=== PATIENT | male | born 1985 | race Caucasian/White ===

== ENCOUNTER 2022-06-09 22:11 | Emergency (ER) | payer MEDICAID, SELFPAY ==
--- NOTE | ~2022-06-09 | CT_ITS ---
EXAMINATION: NONCONTRAST HEAD CT NONCONTRAST CERVICAL SPINE CT INDICATION INFORMATION: Fall, head injury, loss of consciousness COMPARISON: None TECHNIQUE: Separate noncontrast CT examinations of the head and cervical spine were performed. Coronal head CT images and coronal and sagittal cervical spine images were created at the technologist workstation. DLP: 1245 mGy-cm DOSE LOWERING TECHNIQUES: This CT examination was performed using dose optimization techniques as appropriate, variously including the following: - Automated exposure control - Adjustment of mA and/or kV according to patient size (this includes techniques or standardized protocols for targeted exams were dose is matched to indication/reason for exam; i.e. extremities or head) - Use of iterative reconstruction technique FINDINGS: Head: There is no evidence of acute intracranial hemorrhage or territorial infarction. No abnormal mass-effect or midline shift is seen. Salazar to white matter differentiation is well preserved. No extra-axial fluid collections are identified. The ventricles are normal in size. There is no abnormal attenuation within the brain parenchyma. No acute fracture seen. There is right parieto-occipital scalp soft tissue swelling. The mastoid air cells and visualized portions of the paranasal sinuses are well-aerated. Cervical spine: There is anatomic alignment of the vertebral bodies and posterior elements. Vertebral body heights are maintained. Intervertebral disc spaces are preserved. No evidence of acute fracture. No prevertebral soft tissue swelling. Visualized portions of the lung apices are unremarkable. The thyroid gland is unremarkable. CT/CT head/brain wo IV con IMPRESSION: HEAD: No acute intracranial findings. Right parieto-occipital scalp soft tissue swelling. CERVICAL SPINE: No acute findings identified.
--- NOTE | ~2022-06-09 | CT_ITS ---
EXAMINATION: NONCONTRAST HEAD CT NONCONTRAST CERVICAL SPINE CT INDICATION INFORMATION: Fall, head injury, loss of consciousness COMPARISON: None TECHNIQUE: Separate noncontrast CT examinations of the head and cervical spine were performed. Coronal head CT images and coronal and sagittal cervical spine images were created at the technologist workstation. DLP: 1245 mGy-cm DOSE LOWERING TECHNIQUES: This CT examination was performed using dose optimization techniques as appropriate, variously including the following: - Automated exposure control - Adjustment of mA and/or kV according to patient size (this includes techniques or standardized protocols for targeted exams were dose is matched to indication/reason for exam; i.e. extremities or head) - Use of iterative reconstruction technique FINDINGS: Head: There is no evidence of acute intracranial hemorrhage or territorial infarction. No abnormal mass-effect or midline shift is seen. Salazar to white matter differentiation is well preserved. No extra-axial fluid collections are identified. The ventricles are normal in size. There is no abnormal attenuation within the brain parenchyma. No acute fracture seen. There is right parieto-occipital scalp soft tissue swelling. The mastoid air cells and visualized portions of the paranasal sinuses are well-aerated. Cervical spine: There is anatomic alignment of the vertebral bodies and posterior elements. Vertebral body heights are maintained. Intervertebral disc spaces are preserved. No evidence of acute fracture. No prevertebral soft tissue swelling. Visualized portions of the lung apices are unremarkable. The thyroid gland is unremarkable. CT/CT cervical spine wo IV con IMPRESSION: HEAD: No acute intracranial findings. Right parieto-occipital scalp soft tissue swelling. CERVICAL SPINE: No acute findings identified.
--- NOTE | 2022-06-09 22:14 | ECG_ITS ---
Test Reason : syncope Blood Pressure : / mmHG Vent. Rate : 042 BPM Atrial Rate : 042 BPM P-R Int : 128 ms QRS Dur : 096 ms QT Int : 452 ms P-R-T Axes : 047 078 062 degrees QTc Int : 377 ms Marked sinus bradycardia Minimal voltage criteria for LVH, may be normal variant ( Sokolow-Bower ) Abnormal ECG No previous ECGs available Referred By: Generic ED Physician Electronically Signed By:AMANDA HARP
[2022-06-09 22:15] VITALS: BMI 28.3
--- NOTE | 2022-06-09 22:22 | ED_ITS ---
HPI - General Adult General Chief complaint: Syncope Stated complaint: Fainted, Fell Time Seen by Provider: 06/09/22 22:19 Source: patient Mode of arrival: ambulatory Limitations: no limitations History of Present Illness HPI narrative: Patient was in the emergency room accompanying his who is a primary patient. Blood was being drawn, patient passed out, hit his head as he landed on the ground. Patient states that he usually gets dizzy and passes out whenever he goes to hospitals. This time, his was a primary patient, and when he saw the blood, patient started feeling lightheaded. Patient stated that he also had the urge to go to the bathroom to urinate, patient try walking towards the bathroom and that is when he passed out. The fall was witnessed by the staff, patient did not lose consciousness. But he did hit his head pretty hard on the ground. All vitals were checked, it was noted that patient's heart rate is in the low 40s. Patient states that he does a lot of exercise, every da y in the morning goes to the gym and also his work is physically demanding. Related Data Allergies Allergy/AdvReac Type Severity Reaction Status Date / Time No Known Allergies Allergy Verified 06/09/22 22:20 Review of Systems Review of Systems: Constitutional : No Weight loss, No Fever, No Chills, No Night Sweats, No Fatigue, No Malaise ENT/Mouth : No Hearing loss, No Ear Pain, No Nasal Congestion, No Sinus Pain, No Hoarseness, No sore throat, No Rhinorrhea, No Swallowing Difficulty Eyes: No Eye Pain, No Swelling, No Redness, No Foreign Body, No Discharge, No Vision Changes Cardiovascular : No Chest Pain, No SOB, No Dyspnea on Exertion, No Orthopnea, No Edema, No Palpitations Respiratory : No Cough, No Sputum, No Wheezing, No Smoke Exposure, No Dyspnea Gastrointestinal : No Nausea, No Vomiting, No Diarrhea, No Constipation, No abdominal Pain, No Hematochezia, No Melena Genitourinary : no irregular bleeding, No Dysuria, No Urinary Frequency, No Hematuria, No Urinary Incontinence, No Urgency, No Flank Pain, No Urinary Flow Changes, No Hesitancy Musculoskeletal : No joint pain, No Myalgias, No Joint Swelling Skin : Laceration scalp Neuro : No Weakness, No Numbness, No Paresthesias, near syncopal episode secondary to sing blood Psych : No Anxiety/Panic, No Depression, No SI/HI/AH/VH, No Social Issues, Heme/Lymph: No Bruising, No Bleeding,No Lymphadenopathy Endocrine : No Polyuria, No Polydipsia, No Temperature Intolerance [facility] Social History Social History Alcohol intake: current Alcohol intake frequency: holidays/special occasions only Alcohol type: beer Smoked in Last 30 Days: No Use of substances other than those prescribed or required for medical reasons: Yes Substance Use Type: Marijuana Substance Use Frequency: Daily Last Used Substance: Hours (ago) Any prior treatment program specific to substance use: No Advance Directives: No Advance Directives Information Provided: No Physical Exam ED Vital Signs: Vital Signs - 24 hr 06/09/22 22:23 06/09/22 22:25 Temperature 98.1 F Pulse Rate 43 L Respiratory Rate 14 Blood Pressure 106/46 L Pulse Oximetry 98 99 Oxygen Delivery Method Room Air BiPAP Room Air BMI result Body Mass Index 28.3 Course Course Course Narrative: -patient covered quickly when patient was placed in Trendelenburg. Patient states that he is no longer dizzy. Patient states that passing out when seeing blood is very frequent for him. -patient is awake, alert and oriented x4. Patient states that he is agreeable to get a head/cervical spine CT, but patient states that he refuses blood work or IV placement, given his severe fear of needles and blood -EKG shows marked sinus bradycardia, heart rate 42, no ST segment depression or elevation, no T-wave inversion, QTC 377, no previous EKGs for comparison Medical Decision Making Medical Decision Making MDM Narrative: -likely vasovagal syncope from seeing blood. Patient feeling well. Blood pressure normal, heart rate in the 60s. Patient ready for discharge. -patient has family history of heart attacks. Patient's father last year of a heart attack. Patient absolutely refuses to get lab work done. -head CT and cervical spine CT did not show any acute abnormalities other than occipital scalp swelling. Patient does have a small laceration approximately 0.5 cm. Patient respectfully declined sutures or sandro. Patient has an intense fear of needles or sandro. Patient states that he will allow his scalp to heal via secondary intention -patient states that he feels completely back to baseline. Differential Diagnosis Differential Diagnoses: The differential diagnosis associated with the presentation includes (Vasovagal syncope, near syncope, orthostatic hypotension, ACS) Lab Data MDM Lab Attestation statement: I reviewed the patient's lab results. Labs: Lab Results 06/09/22 Range/Units 22:21 POC Glucose 85 (60-115) mg/dL Independent Interpretation I performed an independent interpretation of an: CT Scan (My interpretation of head CT: No acute bleed) Radiology Impression Discussion of test interpretation with radiology: I have reviewed the radiol ogist's reading. Radiologist Impression: FINDINGS: Head: There is no evidence of acute intracranial hemorrhage or territorial infarction. No abnormal mass-effect or midline shift is seen. Salazar to white matter differentiation is well preserved. No extra-axial fluid collections are identified. The ventricles are normal in size. There is no abnormal attenuation within the brain parenchyma. No acute fracture seen. There is right parieto-occipital scalp soft tissue swelling. The mastoid air cells and visualized portions of the paranasal sinuses are well-aerated. Cervical spine: There is anatomic alignment of the vertebral bodies and posterior elements. Vertebral body heights are maintained. Intervertebral disc spaces are preserved. No evidence of acute fracture. No prevertebral soft tissue swelling. Visualized portions of the lung apices are unremarkable. The thyroid gland is unremarkable. CT/CT head/brain wo IV con IMPRESSION: HEAD: No acute intracranial findings. Right parieto-occipital scalp soft tissue swelling. ? CERVICAL SPINE: No acute findings identified. ? Discharge Plan Discharge Clinical Impression: Vasovagal syncope Patient Disposition: Home, Self-Care Instructions: Syncope (ED) Additional Instructions: Please follow-up with your primary care physician tomorrow. If you have any worsening or new symptoms, please return to the emergency room or call 911
[2022-06-09 22:23] VITALS: BP 106/46; PULSE 43; RESP 14; TEMP 36.7; O2SAT 98
[2022-06-09 22:24] VITALS: PULSE 41
[2022-06-09 22:25] VITALS: O2SAT 99
[2022-06-09 22:25] LABS: Glucose, Whole Blood 85 mg/dL (60-115)
--- NOTE | 2022-06-09 22:58 | PC.NURSE ---
Patient sectioned 12 by Gavi, ED provider for self destructing behavior d/t ETOH abuse. Patient denies SI/HI. Patient is alert to self and place only. Patient reports mild nausea, no vomiting, Patient ambulated by management technician to the restroom. Gait is noted to be slow and unsteady. Patient changed over in the pod megan and pants in presence of management technician and security. Patient belongings to be placed in the pod locker.
--- NOTE | 2022-06-09 23:51 | PC.NURSE ---
Patient reused blood to be drawn. Patient reports he does not want to passed out again. Dr. Garcia is aware.
--- NOTE | 2022-06-09 23:56 | MHC.EDTECH ---
pt refused blood draw, RN aware. previously refused as well.
== END 2022-06-10 00:38 | disposition home or self-care (01) ==
PROVIDERS: Emergency Provider Emergency Medicine
DX: R55 Syncope and collapse (principal); S01.01XA Laceration without foreign body of scalp, initial encounter; W17.89XA Other fall from one level to another, initial encounter; F12.90 Cannabis use, unspecified, uncomplicated; Y93.89 Activity, other specified; Y92.238 Other place in hospital as the place of occurrence of the external cause; Y99.9 Unspecified external cause status
CPT/HCPCS: 70450; 72125; 82947; 93005; 99284; 99285

== ENCOUNTER 2023-03-14 09:23 | Emergency (ER) | payer OTHER, MEDICAID, SELFPAY ==
[2023-03-14 09:28] VITALS: BP 144/100; PULSE 61; O2SAT 99
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
[2023-03-14 09:40] VITALS: BP 138/85; PULSE 54; RESP 16; TEMP 36.6; O2SAT 99; BMI 26.6
[2023-03-14] MEDS: Cyclobenzaprine HCl 5 MG TABLET PO (09:55)
== END 2023-03-14 09:59 | disposition home or self-care (01) ==
PROVIDERS: Emergency Provider Emergency Medicine
DX: S39.012A Strain of muscle, fascia and tendon of lower back, initial encounter (principal); V43.52XA Car driver injured in collision with other type car in traffic accident, initial encounter; Y93.9 Activity, unspecified; Y92.410 Unspecified street and highway as the place of occurrence of the external cause; Y99.9 Unspecified external cause status
CPT/HCPCS: 99283

== ENCOUNTER 2025-02-18 04:47 | Emergency (ER) | payer OTHER, SELFPAY ==
--- NOTE | ~2025-02-18 | CT_ITS ---
EXAMINATION: CT ABDOMEN PELVIS WITHOUT IV CONTRAST HISTORY: kidney stone COMPARISON: There are no prior studies available for comparison. TECHNIQUE: CT scan of the abdomen and pelvis was performed without contrast using standard departmental protocol. Coronal and sagittal reformatted images were generated and reviewed. This CT exam was performed with one or more of the following dose reduction techniques: automated exposure control, adjustment of the mA and/or kV according to patient size, use of iterative reconstruction technique. DLP: 6 5 mGy-cm FINDINGS: LOWER CHEST: The visualized lung bases are clear. There is no pleural effusion. CARDIOVASCULATURE: The heart is normal in size. There is no pericardial effusion. LIVER: The liver is normal in size and contour. Benign appearing calcification in the dome of the liver segment 7. The liver otherwise has an unremarkable unenhanced appearance. GALLBLADDER / BILE DUCTS: The gallbladder is unremarkable. There is no intra or extrahepatic biliary ductal dilatation. SPLEEN: The spleen is normal in size and has an unremarkable unenhanced appearance. PANCREAS: The pancreas has an unremarkable unenhanced appearance. ADRENAL GLANDS: Unremarkable. KIDNEYS/RETROPERITONEUM: Bilateral renal stones. Mild left hydronephrosis and ureteral dilatation from a 3 mm left distal ureteral stone. LYMPH NODES: No retroperitoneal lymphadenopathy is identified in the abdomen or pelvis. VASCULATURE: The abdominal aorta is normal in caliber. MESENTERY/PERITONEUM: No free fluid. No masses. There is no free intraperitoneal gas. STOMACH: The stomach is unremarkable. SMALL BOWEL: The small bowel is normal in caliber. COLON: The colon is unremarkable. APPENDIX: Normal. URINARY BLADDER/PELVIC ORGANS: The urinary bladder is empty. The prostate gland does not appear enlarged. BONES / SOFT TISSUES: No suspicious bony or soft tissue abnormalities. CT/CT abdomen pelvis wo IV con IMPRESSION: Bilateral renal stones. Mild left hydronephrosis and ureteral dilatation from a 3 mm left distal ureteral stone. Electronically signed by: Jennifer Magaña MD 02/18/2025 08:11 AM EDT
[2025-02-18 04:53] VITALS: BP 127/70; PULSE 54; RESP 16; TEMP 36.6; O2SAT 98; BMI 10.3
[2025-02-18 05:07] LABS: MANUAL DIFF FLAG NO
[2025-02-18 05:12] LABS: Hematocrit 40.2 % (42.0-52.0); Hemoglobin 13.8 g/dl (14.0-18.0); Imm Gran Abs Auto 0.05 X10*3/uL (0.00-0.03); Imm Gran Pct Auto 0.3 % (0.0-0.4); Lymphocytes Absolute Auto 1.3 X10*3/uL (1.2-4.9); Mean Corpuscular HGB Conc 34.3 g/dl (31.0-36.0); Mean Corpuscular Hemoglobin 29.9 pg (27.0-33.0); Mean Corpuscular Volume 87.2 fL (80.0-98.0); NRBC Abs Auto 0.000 X10*3/uL (0.0-0.012); NRBC Pct Auto 0.0 /100WBC (0.0-0.2); Platelet Count 260 X10*3/uL (160-400); Red Blood Count 4.61 X10*6/uL (4.60-5.80); White Blood Count 15.0 X10*3/uL (4.8-10.8)
[2025-02-18 05:43] LABS: Alanine Aminotransferase 27 U/L (0-40); Albumin Level 4.7 g/dL (3.5-5.0); Alkaline Phosphatase 85 U/L (39-117); Anion Gap 14 (12-20); Aspartate Amino Transferase 28 U/L (5-37); Blood Urea Nitrogen 26 mg/dL (9-16); Calcium 9.5 mg/dL (8.4-10.2); Carbon Dioxide 27 mmol/L (22-29); Chloride 104 mmol/L (96-108); Creatinine Clr Calc Pharmacy 26.8; Estimated Glomerular Filt Rate 45; Lipase 15 U/L (8-78); Potassium 4.0 mmol/L (3.3-5.1); Sodium 141 mmol/L (135-145); Total Protein 7.6 g/dL (6.5-8.0)
[2025-02-18 06:33] LABS: Appearance Urine Clear; Glucose Urine UA Negative (Negative); PH 7.5 (5.0-9.0); Specific Gravity - Urine >= 1.030 (1.005-1.025); UMIC TRIGGER UACC YES
--- NOTE | 2025-02-18 06:36 | ED.ABDPAIN ---
HPI - Abdominal Pain General Chief Complaint: Abdominal Pain Stated Complaint: LEFT ABD PAIN + BACK PAIN Time Seen by Provider: 02/18/25 06:05 Source: patient, family and pathology secretary Mode of arrival: ambulatory Limitations: language barrier History of Present Illness ED Provider: HPI narrative: 39-year-old male with a history of kidney stones, presenting with left flank pain left lower quadrant abdominal pain, started him midnight, he feels like he is having spasms, he has had spasms of his back as well, patient specifically is requesting pain medication without any IV or intramuscular injection as he does not like needles. States he was able to void today without any obvious hematuria, non had a episodes of nausea and vomiting x4 in the morning, no fevers or chills reported. No testicular pain. Related Data Previous Rx's ?Medication ?Instructions ?Recorded cyclobenzaprine 5 mg tablet 5 mg PO TID PRN muscle spasm 7 03/14/23 days #21 tabs ondansetron 4 mg disintegrating 4 mg PO Q8H PRN nausea and 02/18/25 tablet vomiting #4 tabs oxycodone 5 mg tablet 5 mg PO Q6H PRN pain #10 tabs 02/18/25 tamsulosin 0.4 mg capsule (Flomax) 0.4 mg PO BEDTIME 7 days #7 caps 02/18/25 Allergies Allergy/AdvReac Type Severity Reaction Status Date / Time No Known Allergies Allergy Verified 02/18/25 04:54 Review of Systems Constitutional: Reports as per [facility] Social History Social History Alcohol intake: never Smoked in Last 30 Days: No Use of substances other than those prescribed or required for medical reasons: Yes Substance Use Type: Marijuana Substance Use Frequency: Daily Last Used Substance: Hours (ago) Any prior treatment program specific to substance use: No Advance Directives: No Advance Directives Information Provided: Yes Do you have a plan to hurt others: No Plan Physical Exam ED Vital Signs: Vital Signs - 24 hr 02/18/25 04:53 02/18/25 07:56 Temperature 97.8 F 98.3 F Pulse Rate 54 53 Respiratory Rate 16 16 Blood Pressure 127/70 137/64 Pulse Oximetry 98 95 Oxygen Delivery Method Room Air Room Air BMI result Body Mass Index 10.3 Const Other: General: ?Pacing in the room ? ?CV: RRR, no obvious murmurs appreciated ? ?Resp: ?No wheezing rales rhonchi no stridor moving air well ? Abd: ?Bowel sounds are present, no tenderness no rebound no rigidity ? ?MSK: FROM, strength 5/5 all extremities, no CVA tenderness, paraspinal tenderness left lower lumbar area without midline tenderness step-offs or rashes ? Skin: Warm, dry, intact, ? ?Neuro: ?Alert and oriented x3, moving upper and lower extremities symmetrically, no obvious facial asymmetry noted, cranial nerves 2-12 intact Medical Decision Making Medical Decision Making [facility] Narrative: 6:59 AM 02/18/2025 (Dr. Mitchell Avitia): Patient is presenting with a either musculoskeletal spasm or renal colic, he is uncomfortable pacing in the room, requested pain initiation without any IV medications or injections so we will stick to oral meds, no risk factors for diskitis osteomyelitis, no neurologic findings to suspect spinal epidural abscess or cauda equina. We will medicate re-evaluate after imaging. Otherwise abdominal exam is benign I do not suspect appendicitis or diverticulitis, has had no testicular pain to suspect testicular torsion. 8:22 AM 02/18/2025 (Dr. Mitchell Avitia): Patient re-evaluated, slightly nauseous, pain is under better control, his 3 mm distal ureteral stone, discussed with the patient we will anticipate discharge Differential Diagnosis Differential Diagnoses: The differential diagnosis associated with the presentation includes (Musculoskeletal pain, renal colic, diskitis osteomyelitis, cauda equina, spinal epidural abscess) Admission/Observation Consideration of admission/observation: Escalation of care including admission/observation considered Lab Data [facility] Lab Attestation statement: I reviewed the patient's lab results. 02/18/25 04:59 02/18/25 04:59 Labs: Lab Results 02/18/25 02/18/25 Range/Units 04:59 06:27 WBC 15.0 H (4.8-10.8) X10*3/uL RBC 4.61 (4.60-5.80) X10*6/uL Hgb 13.8 L (14.0-18.0) g/dl Hct 40.2 L (42.0-52.0) % MCV 87.2 (80.0-98.0) fL MCH 29.9 (27.0-33.0) pg MCHC 34.3 (31.0-36.0) g/dl RDW 14.0 (11.0-16.0) % Plt Count 260 (160-400) X10*3/uL MPV 9.8 (9.4-12.4) fL Immature Gran % (Auto) 0.3 (0.0-0.4) % Neut % (Auto) 87.3 H (45-73) % Lymph % (Auto) 8.5 L (20-40) % [place] % (Auto) 3.6 (2-11) % Eos % (Auto) 0.1 (0-4) % Baso % (Auto) 0.2 (0-2) % Lymph # (Auto) 1.3 (1.2-4.9) X10*3/uL [place] # (Auto) 0.5 (0.1-1.2) X10*3/uL Eos # (Auto) 0.0 (0.0-0.4) X10*3/uL Baso # (Auto) 0.0 (0.0-0.2) X10*3/uL Abs Immat Gran (auto) 0.05 H (0.00-0.03) X10*3/uL Absolute Neuts (auto) 13.1 H (2.0-8.3) x10*3/uL Absolute Nucleated RBC 0.000 (0.0-0.012) X10*3/uL Nucleated RBC % (auto) 0.0 (0.0-0.2) /100WBC Sodium 141 (135-145) mmol/L Potassium 4.0 (3.3-5.1) mmol/L Chloride 104 (96-108) mmol/L Carbon Dioxide 27 (22-29) mmol/L Anion Gap 14 (12-20) BUN 26 H (9-16) mg/dL Creatinine 1.72 H (0.5-1.4) mg/dL Estim Creat Clear Calc 26.8 Estimated GFR 45 Random Glucose 130 H (60-115) mg/dL Calcium 9.5 (8.4-10.2) mg/dL Total Bilirubin 0.6 (0.0-1.0) mg/dL AST 28 (5-37) U/L ALT 27 (0-40) U/L Alkaline Phosphatase 85 (39-117) U/L Total Protein 7.6 (6.5-8.0) g/dL Albumin 4.7 (3.5-5.0) g/dL Lipase 15 (8-78) U/L Urine Color Yellow Urine Appearance Clear Urine pH 7.5 (5.0-9.0) Ur Specific [place] >= 1.030 H (1.005-1.025) Urine Protein Trace (Neg-Trace) mg/dL Urine Glucose (UA) Negative (Negative) mg/dL Urine Ketones 40 (Negative) mg/dL Urine Blood Negative (Negative) Urine Nitrite Negative (Negative) Ur Leukocyte Esterase Trace H (Negative) Urine RBC 0-2 (0-2) /HPF Urine WBC 0-5 (0-5) /HPF Ur Squamous Epith Cells 0-2 (0-2) /HPF Urine Bacteria None Seen (None Seen) Hyaline Casts 0-2 (0-2) /LPF Radiology Impression Discussion of test interpretation with radiology: I have reviewed the radiologist's reading. ( CT/CT abdomen pelvis wo IV con IMPRESSION: Bilateral renal stones. Mild left hydronephrosis and ureteral dilatation from a 3 mm left distal ureteral stone.) Medications Administered Discontinued Medications Generic Name Dose Route Start Last Admin Trade Name Bcq PRN Reason Stop Dose Admin Acetaminophen 975 mg 02/18/25 06:36 02/18/25 07:13 Acetaminophen 325 Mg Tablet PO 02/18/25 06:37 975 mg ONCE ONE Administration Diazepam 2 mg 02/18/25 06:36 02/18/25 07:13 Diazepam 2 Mg Tablet PO 02/18/25 06:37 2 mg ONCE ONE Administration Lidocaine 1 patch 02/18/25 06:36 02/18/25 07:13 Lidocaine 4 % Patch Adh..Patch TRANSDERMA 02/18/25 06:37 1 patch ONCE ONE Administration Protocol Oxycodone HCl 5 mg 02/18/25 06:36 02/18/25 07:13 Oxycodone Hcl Immed Release 5 Mg Tablet PO 02/18/25 06:37 5 mg ONCE ONE Administration Discharge Plan Discharge Clinical Impression: Renal colic on left side Patient Disposition: Home, Self-Care Instructions: Renal Colic (ED) Additional Instructions: Please use ibuprofen 400 mg every 6 hours around the clock, take it with food, acetaminophen 975 mg every 6 hours for additional pain control, oxycodone 5 mg every 4-6 hours only if your pain is not under control, Flomax before bedtime to help pass the stone, ondansetron 4 mg every 6-8 hours needed for nausea and vomiting Inability to tolerate oral liquids, inability to urinate, spiking fevers, chills come back to the ER, otherwise follow up with the PCP or urologist Prescriptions: New tamsulosin [Flomax] 0.4 mg capsule 0.4 mg PO BEDTIME 7 Days Qty: 7 0RF ondansetron 4 mg tablet,disintegrating 4 mg PO Q8H PRN (Reason: nausea and vomiting) Qty: 4 0RF oxycodone 5 mg tablet 5 mg PO Q6H PRN (Reason: pain) Qty: 10 0RF Rx Instructions: Partial Fill upon patient request. No Action cyclobenzaprine 5 mg tablet 5 mg PO TID PRN (Reason: muscle spasm) 7 Days Qty: 21 0RF Stand Alone Forms: Work/School Release Print Language: [place]
[2025-02-18] MEDS: oxyCODONE HCl Immed Release 5 MG TABLET PO (07:13)
[2025-02-18] MEDS: Lidocaine 4 % Patch ADH..PATCH 1 PATCH TRANSDERMA (07:13)
[2025-02-18 07:56] VITALS: BP 137/64; PULSE 53; RESP 16; TEMP 36.8; O2SAT 95
[2025-02-18 08:37] VITALS: BP 137/64; PULSE 53; RESP 16; TEMP 36.8; O2SAT 95
[2025-02-18] MEDS: oxyCODONE HCl ER 10 MG TAB.ER.12H PO (08:46)
== END 2025-02-18 08:58 | disposition home or self-care (01) ==
PROVIDERS: Emergency Provider Emergency Medicine
DX: N23 Unspecified renal colic (principal); R11.2 Nausea with vomiting, unspecified
CPT/HCPCS: 36415; 74176; 80053; 81001; 83690; 85025; 99284

== ENCOUNTER → 2025-02-18 06:36 | Outpatient (BNV) | payer OTHER, SELFPAY | PROVIDERS: Emergency Provider Emergency Medicine; Visit Provider Radiology Diagnostic Radiology | DX: N20.0 Calculus of kidney (principal); N20.1 Calculus of ureter | CPT/HCPCS: 74176 ==

== ENCOUNTER 2025-02-22 08:50 | Emergency (ER) | payer OTHER, SELFPAY ==
[2025-02-22 08:56] VITALS: BP 142/81; PULSE 81; RESP 16; TEMP 36.6; O2SAT 99; BMI 24.4
[2025-02-22 09:13] VITALS: BP 142/81; PULSE 81; RESP 16; TEMP 36.6; O2SAT 99
[2025-02-22 09:21] VITALS: BP 125/88; PULSE 87; RESP 19; TEMP 36.8; O2SAT 97
--- NOTE | 2025-02-22 09:24 | PC.NURSE ---
39 M presents to ED with c/o pain this morning at 2am, thinks he may have passed a kidney stone. Pt deniess any pain/discomfort at this time, sts has been having abdominal pain/discomfort since being seen on , just ran out of meds and is asking for a refill. Pt is taking oxycode, flomax, and zofran. A+Ox4, calm, cooperative. Pt denies CP or SOB. Pt is ambulatory.
--- NOTE | 2025-02-22 09:32 | ED.MALEGU ---
HPI - Male Genitourinary General Chief complaint: Urogenital-Male Stated complaint: kidney stones Time Seen by Provider: 02/22/25 09:25 Source: patient and undergraduate intern Mode of arrival: ambulatory Limitations: language barrier History of Present Illness ED Provider: KERON MEYER PA-C HPI Narrative: 39-year-old Algerian-speaking male presents to the ED today requesting a refill of his medication. Patient was evaluated at our facility on 02/18/2025 for left flank pain. Diagnosed with a 3 mm ureteral stone and discharged home with Flomax, Zofran and oxycodone. Patient reports waking up around 0200 this morning with continued pain, became diaphoretic and voided. He is unsure if he passed the stone at that time. Admits to taking his last dose of Oxycodone at 0600 this morning. He has no complaints at present. Denies any pain. His main concern is that he ran out of his oxycodone and is unsure how he is going to control his pain at home if it returns. He has not yet called to schedule a follow up appointment with urology. Denies fever, chills, N/V, abdominal or flank pain, dysuria, hematuria. Endorses normal PO intake. Related Data Previous Rx's ?Medication ?Instructions ?Recorded cyclobenzaprine 5 mg tablet 5 mg PO TID PRN muscle spasm 7 03/14/23 days #21 tabs ondansetron 4 mg disintegrating 4 mg PO Q8H PRN nausea and 02/18/25 tablet vomiting #4 tabs oxycodone 5 mg tablet 5 mg PO Q6H PRN pain #10 tabs 02/18/25 tamsulosin 0.4 mg capsule (Flomax) 0.4 mg PO BEDTIME 7 days #7 caps 02/18/25 ondansetron 4 mg disintegrating 4 mg PO Q8H PRN nausea and 02/22/25 tablet vomiting #10 tabs oxycodone 5 mg tablet 5 mg PO Q8H PRN pain (scale score 02/22/25 7-10) 3 days #9 tabs Allergies Allergy/AdvReac Type Severity Reaction Status Date / Time No Known Allergies Allergy Verified 02/22/25 09:00 Review of Systems Review of Systems: Yes all other systems are reviewed and are negative PMFSH Past Medical History Attestation statement: The following information was validated with the patient. Source: old records reviewed and nursing notes reviewed Social History Social History Alcohol intake: never Smoked in Last 30 Days: No Use of substances other than those prescribed or required for medical reasons: No Substance Use Type: Marijuana Advance Directives: No Advance Directives Information Provided: No Do you have a plan to hurt others: No Plan Physical Exam Vital Signs: Vital Signs: Last Vital Signs Temp 98.2 F 02/22/25 10:19 Pulse 87 02/22/25 10:19 Resp 19 02/22/25 10:19 BP 125/88 02/22/25 10:19 Pulse Ox 97 02/22/25 10:19 O2 Del Method Room Air 02/22/25 10:19 BMI result Body Mass Index 24.4 Vital signs stable, afebrile General: Well appearing, in no acute distress. Skin: Warm, dry, intact. No rashes or lesions. Head: Normocephalic, atraumatic. EENT: Hearing is intact b/l. Conjunctiva clear. PERRLA. EOM intact. Moist mucous membranes.? Cardiac: Chest wall symmetric. RRR Lungs: Normal respiratory effort without accessory muscle use. CTA bilaterally Abdomen: Soft, non-tender, non-distended. No rebound tenderness or guarding. Positive BS x4. No CVAT bilaterally. Ext: Upper and lower extremities atraumatic, without tenderness, deformity, swelling or erythema Neuro: AOx3. Normal speech. Ambulating with steady gait. Course Course Course Narrative: Patient has no somatic complaints at present. His primary concern is refilling his oxycodone as he is hesitant about his pain returning at home. He denies any pain at present. His urine does not demonstrate infection. That has possible that he passed the stone this morning. I do not feel as though repeat labs and imaging are warranted at this time. Plan to send a 3 day script of oxycodone to pharmacy. Advised patient to trial Tylenol/Motrin 1st and to only use oxycodone for any breakthrough pain he may experience. I also discussed starting MiraLax and Colace while taking the oxycodone. Advised follow up with Urology. Patient has remained stable throughout ED visit today. Discussed worrisome signs and symptoms and when to return to the ED. All questions answered at this time. Patient is agreeable with disposition and stable for discharge. Medical Decision Making Medical Decision Making [facility] Narrative: 39-year-old Algerian-speaking male presents to the ED today requesting a refill of his medication. Hypertensive, vitals otherwise WNL. He is well-appearing and in no acute distress. Sitting comfortably on chair. Abdominal exam is benign. There is no CVAT bilaterally. Differential diagnosis includes medication refill, renal colic, nephrolithiasis, hydronephrosis. Unlikely obstructive uropathy, UTI Will obtain UA to rule out infection. I do not feel as though repeat labs or imaging are needed at this time as patient is completely asymptomatic. Last CT scan obtained 4 days ago shows a 3 mm distal ureteral stone, this should pass on its own if not already passed. Plan to send ree home w/ 3 day script of oxy + outpatient urology follow up. Differential Diagnosis Differential Diagnoses: The differential diagnosis associated with the presentation includes as above. Admission/Observation not indicated. Lab Data [facility] Lab Attestation statement: I reviewed the patient's lab results. as above. Labs: Lab Results 02/22/25 Range/Units 09:39 Urine Color Dark Yellow Urine Appearance Clear Urine pH 5.5 (5.0-9.0) Ur Specific [place] >= 1.030 H (1.005-1.025) Urine Protein 30 (1+) H (Neg-Trace) mg/dL Urine Glucose (UA) Negative (Negative) mg/dL Urine Ketones 15 (Negative) mg/dL Urine Blood Negative (Negative) Urine Nitrite Negative (Negative) Ur Leukocyte Esterase Negative (Negative) Urine RBC 0-2 (0-2) /HPF Urine WBC 0-5 (0-5) /HPF Ur Squamous Epith Cells 0-2 (0-2) /HPF Urine Bacteria None Seen (None Seen) Hyaline Casts 0-2 (0-2) /LPF Independent Interpretation I performed an independent interpretation of an: CT Scan Interpretation: ct a/p 02/18/25 shows stone to distal L ureter Radiology Impression Discussion of test interpretation with radiology: I have reviewed the radiologist's reading. Radiologist Impression: Reason for Exam: kidney stone EXAMINATION: CT ABDOMEN PELVIS WITHOUT IV CONTRAST HISTORY: kidney stone COMPARISON: There are no prior studies available for comparison. TECHNIQUE: CT scan of the abdomen and pelvis was performed without contrast using standard departmental protocol. Coronal and sagittal reformatted images were generated and reviewed. This CT exam was performed with one or more of the following dose reduction techniques: automated exposure control, adjustment of the mA and/or kV according to patient size, use of iterative reconstruction technique. DLP: 6 5 mGy-cm FINDINGS: LOWER CHEST: The visualized lung bases are clear. There is no pleural effusion. CARDIOVASCULATURE: The heart is normal in size. There is no pericardial effusion. LIVER: The liver is normal in size and contour. Benign appearing calcification in the dome of the liver segment 7. The liver otherwise has an unremarkable unenhanced appearance. GALLBLADDER / BILE DUCTS: The gallbladder is unremarkable. There is no intra or extrahepatic biliary ductal dilatation. SPLEEN: The spleen is normal in size and has an unremarkable unenhanced appearance. PANCREAS: The pancreas has an unremarkable unenhanced appearance. ADRENAL GLANDS: Unremarkable. KIDNEYS/RETROPERITONEUM: Bilateral renal stones. Mild left hydronephrosis and ureteral dilatation from a 3 mm left distal ureteral stone. LYMPH NODES: No retroperitoneal lymphadenopathy is identified in the abdomen or pelvis. VASCULATURE: The abdominal aorta is normal in caliber. MESENTERY/PERITONEUM: No free fluid. No masses. There is no free intraperitoneal gas. STOMACH: The stomach is unremarkable. SMALL BOWEL: The small bowel is normal in caliber. COLON: The colon is unremarkable. APPENDIX: Normal. URINARY BLADDER/PELVIC ORGANS: The urinary bladder is empty. The prostate gland does not appear enlarged. BONES / SOFT TISSUES: No suspicious bony or soft tissue abnormalities. CT/CT abdomen pelvis wo IV con IMPRESSION: Bilateral renal stones. Mild left hydronephrosis and ureteral dilatation from a 3 mm left distal ureteral stone. Electronically signed by: Jennifer Magaña MD 02/18/2025 08:11 AM EDT External Record Review External record reviewed: Inpatient record Prescription Management I considered prescription management with: Pain Medication Social Determinants Patient?s care significantly limited by Social Determinants of Health including: Other Social Determinant of Health Critical Care Time Critical Care Time Critical Care Time: No Discharge Plan Discharge Clinical Impression: Left ureteral stone, Medication refill Patient Disposition: Home, Self-Care Instructions: Medicine Refill (ED) Additional Instructions: Your urine does not demonstrate infection. It is reassuring that you are asymptomatic. I do not feel as though repeat blood work or imaging is warranted at this time. You may have passed the stone this morning. I encourage you to take Tylenol and Motrin at home as needed for pain. I am refilling your oxycodone and Zofran for you. You may take the oxycodone as needed for breakthrough pain. Opioid pain medications can often cause constipation. I recommend taking this with an over the counter laxative and/or stool softener to help move your bowels. Please call the urologist's office tomorrow morning to schedule a follow up appointment. Return with any new or worsening symptoms. In the case of an emergency call 911. Prescriptions: New oxycodone 5 mg tablet 5 mg PO Q8H PRN (Reason: pain (scale score 7-10)) 3 Days Qty: 9 0RF Rx Instructions: Partial Fill upon patient request. ondansetron 4 mg tablet,disintegrating 4 mg PO Q8H PRN (Reason: nausea and vomiting) Qty: 10 0RF No Action cyclobenzaprine 5 mg tablet 5 mg PO TID PRN (Reason: muscle spasm) 7 Days Qty: 21 0RF tamsulosin [Flomax] 0.4 mg capsule 0.4 mg PO BEDTIME 7 Days Qty: 7 0RF ondansetron 4 mg tablet,disintegrating 4 mg PO Q8H PRN (Reason: nausea and vomiting) Qty: 4 0RF oxycodone 5 mg tablet 5 mg PO Q6H PRN (Reason: pain) Qty: 10 0RF Rx Instructions: Partial Fill upon patient request. Referrals: [facility] [place] [facility] [Provider Group, Urology] Physician,Unknown J [Primary Care Provider, Medical] Stand Alone Forms: Work/School Release Interventions: ED Discharge Assessment Last Done: 02/22/25 10:19 Discharge Date/Time: 02/22/25 10:27 Print Language: Algerian
[2025-02-22 09:48] LABS: Appearance Urine Clear; Glucose Urine UA Negative (Negative); PH 5.5 (5.0-9.0); Specific Gravity - Urine >= 1.030 (1.005-1.025); UMIC TRIGGER UACC YES
[2025-02-22 10:19] VITALS: BP 125/88; PULSE 87; RESP 19; TEMP 36.8; O2SAT 97
== END 2025-02-22 10:27 | disposition home or self-care (01) ==
PROVIDERS: Emergency Provider Emergency Medicine
DX: N20.1 Calculus of ureter (principal)
CPT/HCPCS: 81001; 99283; 99284